=== PATIENT | male | born 1990 | race Caucasian/White ===

== ENCOUNTER 2017-10-24 15:28 | Inpatient (IN) | payer OTHER ==
[2017-10-24 16:43] LABS: Basophils % (Auto) 1.2 % (0.0-1.8); Eosinophils % (Auto) 1.3 % (0.0-4.3); Hematocrit 46.8 % (35.5-45.6); Hemoglobin 16.1 gm/dl (11.8-15.2); Mean Corpuscular HGB Conc 34 % (32-34); Mean Corpuscular Hemoglobin 32 pg (28-32); Mean Corpuscular Volume 94 fl (84-94); Platelet Count 336 K/mm3 (140-440); Red Blood Count 4.99 M/mm3 (3.65-5.03); Red Cell Distribution Width 12.9 % (13.2-15.2); White Blood Count 6.9 K/mm3 (4.5-11.0)
[2017-10-24 17:06] LABS: Anion Gap 19 mmol/L; BUN/Creatinine Ratio 22; Blood Urea Nitrogen 13 mg/dL (9-20); Calcium 9.6 mg/dL (8.4-10.2); Carbon Dioxide 27 mmol/L (22-30); Chloride 96.8 mmol/L (98-107); Glucose 77 mg/dL (75-100); Potassium 4.5 mmol/L (3.6-5.0); Sodium 138 mmol/L (137-145)
[2017-10-24] MEDS ORDERED: ASPIRIN PO ONE (19:18)
--- NOTE | 2017-10-24 19:29 | Emergency Department Report ---
ED Chest Pain HPI - General Chief Complaint: Chest Pain Stated Complaint: CP Time Seen by Provider: 10/24/17 19:16 Source: patient Mode of arrival: Ambulatory Limitations: No Limitations - History of Present Illness Initial Comments: 26 yo male with chest pain that began yesterday at 1300. The pain is sharp and throbbing in nature associated with nausea/vomiting and shortness of breath. It is retrosternal and left chest and radiated to his back..he rates the pain as 4/10. He drinks regularly 8-10 beers a day and snorted cocaine yesterday. He intermittently snorts cocaine . Mr Wright has also had decrease appetite for a few days.. Pt c/o of numbness and tingling in his hands and feet on and off for 2 weeks. 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 MD Complaint: chest pain -: days(s) (2) Onset: during rest Pain Location: substernal, left chest Pain Radiation: back Severity scale (0 -10): 4 Quality: sharp, other (throbbing) Consistency: intermittent Improves With: nothing Worsens With: nothing re: nausea, vomting, dyspnea Other Symptoms: denies: cough, fever Treatments Prior to Arrival: none Aspirin use within the Past 7 Days: (0) No - Related Data On Oral Contraceptives: No Allergies Allergy/AdvReac Type Severity Reaction Status Date / Time Unable to Assess Allergy Unverified 10/24/17 15:44 ED Review of Systems ROS: Stated complaint: CP Other details as noted in HPI ED Past Medical Hx - Past Medical History Previous Medical History?: No - Surgical History Past Surgical History?: No - Social History Smoking Status: Current Every Day Smoker Substance Use Type: None ED Physical Exam - General Limitations: No Limitations General appearance: alert, in no apparent distress - Head Head exam: Present: atraumatic, normocephalic - Eye Eye exam: Present: normal appearance - ENT ENT exam: Present: mucous membranes moist - Neck Neck exam: Present: normal inspection - Respiratory Respiratory exam: Present: normal lung sounds bilaterally. Absent: respiratory distress - Cardiovascular Cardiovascular Exam: Present: normal rhythm, tachycardia. Absent: systolic murmur, diastolic murmur, rubs, gallop - GI/Abdominal GI/Abdominal exam: Present: soft, normal bowel sounds - Rectal Rectal exam: Present: deferred - Extremities Exam Extremities exam: Present: normal inspection - Back Exam Back exam: Present: normal inspection - Neurological Exam Neurological exam: Present: alert, oriented X3 - Psychiatric Psychiatric exam: Present: normal affect, normal mood - Skin Skin exam: Present: warm, dry, intact, normal color. Absent: rash ED Course Vital Signs 10/24/17 15:44 Temperature 98.6 F Pulse Rate 104 H Respiratory 18 Rate Blood Pressure 166/113 O2 Sat by Pulse 98 Oximetry ED Medical Decision Making - Lab Data Result diagrams: 10/24/17 16:02 10/24/17 16:02 - EKG Data EKG shows normal: axis, intervals (LVH) Rate: normal (m) Critical care attestation.: If time is entered above; I have spent that time in minutes in the direct care of this critically ill patient, excluding procedure time. ED Disposition Clinical Impression: Cocaine abuse Condition: Stable Instructions: Chest Pain (ED) Referrals: PRIMARY CARE, [Primary Care Provider] - 3-5 Days
[2017-10-24] MEDS: NITROSTAT SL PRN ×2 (19:43→22:41)
[2017-10-24 20:12] LABS: Urine Drugs of Abuse Note Disclamer
[2017-10-24 21:02] LABS: Bilirubin,Urine NEG (Negative); Blood,Urine NEG (Negative); Ketones,Urine NEG (Negative); Leukocyte Esterase,Urine NEG (Negative); Nitrite,Urine NEG (Negative); Protein,Urine <15 mg/dL mg/dL (Negative); Urobilinogen,Urine < 2.0 mg/dL (<2.0)
[2017-10-24] MEDS ORDERED: NITRO-BID 2% TP ONE ×2 (22:58→23:18)
[2017-10-24] MEDS ORDERED: ATIVAN ONE (23:53)
[2017-10-24] MEDS ORDERED: ATIVAN IV ONE (23:58)
--- NOTE | 2017-10-24 23:59 | History and Physical Report ---
History of Present Illness Date of examination: 10/24/17 History of present illness: 26-year-old man with a history of substance abuse comes emergency room because he has been experiencing chest pain on and off over the last 2 weeks. Pain is in the left chest which he is unable to describe, intermittent, sometimes lasting for one hour, intensity 5/10, no radiation and he cannot identify exacerbating or relieving factor. He stated over the last 2 days his chest pain is worsened he complains of nausea, shortness of breath, palpitation and diaphoresis. His last drink was yesterday Review Of Systems: Constitutional: no weight loss Ears, eyes, nose, mouth and throat: no nasal congestion, no nasal discharge, no sinus pressure, blurry vision, diplopia Neck: No neck pain or rigidity. Cardiovascular: no orthopnea, palpitations Respiratory: No cough Gastrointestinal: abdominal pain, hematochezia Genitourinary : no dysuria, frequency , hematuria Musculoskeletal: no muscle ache Integumentary: no rash, no pruritis Neurological: no parathesias, focal weakness Endocrine: no cold or heat intolerance, no polyuria or polydipsia Hematologic/Lymphatic: no easy bruising, no easy bleeding, no gland swelling Allergic/Immunologic: no urticaria, no angioedema. PAST MEDICAL HISTORY: substance abuse PAST SURGICAL HISTORY: None FAMILY HISTORY: Hypertension SOCIAL HISTORY: 8 beers a day, cocaine, amphentermine use Medications and Allergies Allergies Allergy/AdvReac Type Severity Reaction Status Date / Time Unable to Assess Allergy Verified 10/24/17 23:18 Active Meds: Active Medications Nitroglycerin (Nitrostat) 0.4 mg SL .Q5MIN PRN PRN Reason: Chest Pain Last Admin: 10/24/17 22:41 Dose: 0.4 mg Exam - Physical Exam Narrative exam: Gen. appearance: Patient lying in bed in no acute distress HEENT: Normocephalic/atraumatic, pupils equal round reactive to light, extra alkaline movement intact, no scleral icterus, no JVD or thyromegaly or nodule, neck is supple, mucous membrane moist, no erythema or exudate Heart: S1-S2, tachycardic, rate and rhythm Lungs: Clear to auscultation bilateral breathing comfortable Abdomen: Positive bowel sounds, nontender, nondistended, no organomegaly Extremities: +tremors, No edema, cyanosis, clubbing Neuro:: Oriented 3 , cranial nerves II-12 intact, speech, motor intact Skin: No rash, nodules, warm dry - Constitutional Vitals: Temp Pulse Resp BP Pulse Ox 99 F 92 H 18 142/90 96 10/24/17 19:28 10/24/17 23:20 10/24/17 22:40 10/24/17 23:20 10/24/17 22:40 Results - Labs CBC & Chem 7: 10/24/17 16:02 10/24/17 16:02 Labs: Abnormal lab results 10/24/17 10/24/17 Range/Units 16:02 16:02 Hgb 16.1 H (11.8-15.2) gm/dl Hct 46.8 H (35.5-45.6) % RDW 12.9 L (13.2-15.2) % Chloride 96.8 L (98-107) mmol/L Creatinine 0.6 L (0.8-1.5) mg/dL - Imaging and Cardiology EKG: image reviewed Assessment and Plan Assessment Alcohol withdrawal Chest pain, rule out ACS substance abuse Plan Admit to medicine [facility] protocol with IV Ativan, thiamine and folic acid Cardiac enzymes, stress test when which are all symptoms are resolved DVT prophylaxis
[2017-10-25] MEDS ORDERED: DULCOLAX PR PRN (00:25)
[2017-10-25] MEDS ORDERED: ZOFRAN IV PRN (00:25)
[2017-10-25] MEDS ORDERED: MILK OF MAGNESIA PO PRN (00:25)
[2017-10-25] MEDS ORDERED: ATIVAN IV PRN ×2 (00:31)
[2017-10-25 02:19] LABS: Creatine Kinase 116 units/L (55-170); Creatine Kinase MB 1.3 ng/mL (0.0-4.0)
[2017-10-25 06:29] LABS: Creatine Kinase MB 1.1 ng/mL (0.0-4.0)
[2017-10-25 06:33] LABS: Creatine Kinase 104 units/L (55-170)
--- NOTE | 2017-10-25 09:15 | XRay Report ---
Single view chest: History: Chest pain. Findings: Normal cardiomediastinal silhouette. Trachea is midline. No consolidation, pneumothorax or pleural effusion. Impression: No acute cardiopulmonary findings.
[2017-10-25] MEDS: FOLVITE PO SCH (09:36)
[2017-10-25] MEDS: VITAMIN B-1 PO SCH (09:36)
[2017-10-25] MEDS: LOVENOX SUB-Q SCH (09:38)
[2017-10-25] MEDS ORDERED: LOVENOX SUB-Q SCH (10:00)
[2017-10-25] MEDS: TYLENOL PO PRN ×3 (10:12→22:05)
--- NOTE | 2017-10-25 11:19 | Progress Note ---
Assessment and Plan Assessment and plan: Chest pain Alcohol withdrawal syndrome Amphetamine abuse History Interval history: chest pain Hospitalist Physical - Physical exam Narrative exam: GEN APPEARANCE : Not in acute distress HEENT: Normocephalic Atrauma NECK : supple, no JVD LUNGS: clear to auscultation bilaterally, no rales, no wheeze HEART: S1 and S2 regular, tachycardia, no murmurs, rubs or gallop, ABD: Soft, no tenderness, no distension, normal bowel sounds EXT: No edema, no clubbing, no cyanosis NEURO: Awake,alert,oriented x 3, no facial asymmetry,no focal signs, - Constitutional Vitals: Temp Pulse Resp BP Pulse Ox 97.5 F L 60 18 135/91 100 10/25/17 04:00 10/25/17 10:01 10/25/17 10:12 10/25/17 10:01 10/25/17 09:41 Results - Labs CBC & Chem 7: 10/24/17 16:02 10/24/17 16:02 Labs: Laboratory Last Values WBC 6.9 K/mm3 (4.5-11.0) 10/24/17 16:02 RBC 4.99 M/mm3 (3.65-5.03) 10/24/17 16:02 Hgb 16.1 gm/dl (11.8-15.2) H 10/24/17 16:02 Hct 46.8 % (35.5-45.6) H 10/24/17 16:02 MCV 94 fl (84-94) 10/24/17 16:02 MCH 32 pg (28-32) 10/24/17 16:02 MCHC 34 % (32-34) 10/24/17 16:02 RDW 12.9 % (13.2-15.2) L 10/24/17 16:02 Plt Count 336 K/mm3 (140-440) 10/24/17 16:02 Lymph % (Auto) 22.9 % (13.4-35.0) 10/24/17 16:02 [place] % (Auto) 7.3 % (0.0-7.3) 10/24/17 16:02 Eos % (Auto) 1.3 % (0.0-4.3) 10/24/17 16:02 Baso % (Auto) 1.2 % (0.0-1.8) 10/24/17 16:02 Lymph # 1.6 K/mm3 (1.2-5.4) 10/24/17 16:02 [place] # 0.5 K/mm3 (0.0-0.8) 10/24/17 16:02 Eos # 0.1 K/mm3 (0.0-0.4) 10/24/17 16:02 Baso # 0.1 K/mm3 (0.0-0.1) 10/24/17 16:02 Seg Neutrophils % 67.3 % (40.0-70.0) 10/24/17 16:02 Seg Neutrophils # 4.6 K/mm3 (1.8-7.7) 10/24/17 16:02 D-Dimer 203.16 ng/mlDDU (0-234) 10/24/17 19:24 Sodium 138 mmol/L (137-145) 10/24/17 16:02 Potassium 4.5 mmol/L (3.6-5.0) 10/24/17 16:02 Chloride 96.8 mmol/L (98-107) L 10/24/17 16:02 Carbon Dioxide 27 mmol/L (22-30) 10/24/17 16:02 Anion Gap 19 mmol/L 10/24/17 16:02 BUN 13 mg/dL (9-20) 10/24/17 16:02 Creatinine 0.6 mg/dL (0.8-1.5) L 10/24/17 16:02 Estimated GFR > 60 ml/min 10/24/17 16:02 BUN/Creatinine Ratio 22 % 10/24/17 16:02 Glucose 77 mg/dL (75-100) 10/24/17 16:02 Lactic Acid 1.40 mmol/L (0.7-2.0) 10/24/17 19:24 Calcium 9.6 mg/dL (8.4-10.2) 10/24/17 16:02 Total Creatine Kinase 104 units/L (55-170) 10/25/17 05:58 CK-MB (CK-2) 1.1 ng/mL (0.0-4.0) 10/25/17 05:58 CK-MB (CK-2) Rel Index 1.0 (0-4) 10/25/17 05:58 Troponin T < 0.010 ng/mL (0.00-0.029) 10/25/17 05:58 Urine Color Yellow (Yellow) 10/24/17 20:05 Urine Turbidity Clear (Clear) 10/24/17 20:05 Urine pH 6.0 (5.0-7.0) 10/24/17 20:05 Ur Specific [place] 1.017 (1.003-1.030) 10/24/17 20:05 Urine Protein <15 mg/dl mg/dL (Negative) 10/24/17 20:05 Urine Glucose (UA) Neg mg/dL (Negative) 10/24/17 20:05 Urine Ketones Neg mg/dL (Negative) 10/24/17 20:05 Urine Blood Neg (Negative) 10/24/17 20:05 Urine Nitrite Neg (Negative) 10/24/17 20:05 Urine Bilirubin Neg (Negative) 10/24/17 20:05 Urine Urobilinogen < 2.0 mg/dL (<2.0) 10/24/17 20:05 Ur Leukocyte Esterase Neg (Negative) 10/24/17 20:05 Urine WBC (Auto) 0.0 /HPF (0.0-6.0) 10/24/17 20:05 Urine RBC (Auto) 0.0 /HPF (0.0-6.0) 10/24/17 20:05 Urine Opiates Screen Presumptive negative 10/24/17 20:05 Urine Methadone Screen Presumptive negative 10/24/17 20:05 Ur Barbiturates Screen Presumptive negative 10/24/17 20:05 Ur Phencyclidine Scrn Presumptive negative 10/24/17 20:05 Ur Amphetamines Screen Presumptive positive 10/24/17 20:05 U Benzodiazepines Scrn Presumptive negative 10/24/17 20:05 Urine Cocaine Screen Presumptive negative 10/24/17 20:05 U Marijuana (THC) Screen Presumptive negative 10/24/17 20:05 Drugs of Abuse Note Disclamer 10/24/17 20:05 Plasma/Serum Alcohol < 0.01 gm% (0-0.07) 10/24/17 19:24
[2017-10-26 06:32] LABS: Basophils % (Auto) 1.2 % (0.0-1.8); Hematocrit 43.1 % (35.5-45.6); Mean Corpuscular HGB Conc 35 % (32-34); Mean Corpuscular Hemoglobin 33 pg (28-32); Mean Corpuscular Volume 95 fl (84-94); Platelet Count 291 K/mm3 (140-440); Red Blood Count 4.56 M/mm3 (3.65-5.03); Red Cell Distribution Width 12.8 % (13.2-15.2); White Blood Count 5.1 K/mm3 (4.5-11.0)
[2017-10-26 06:38] LABS: Anion Gap 15 mmol/L; BUN/Creatinine Ratio 20; Blood Urea Nitrogen 12 mg/dL (9-20); Calcium 8.7 mg/dL (8.4-10.2); Carbon Dioxide 27 mmol/L (22-30); Chloride 98.1 mmol/L (98-107); Glucose 104 mg/dL (75-100); Potassium 3.9 mmol/L (3.6-5.0); Sodium 136 mmol/L (137-145)
[2017-10-26] MEDS ORDERED: LEXISCAN IV ONE ×2 (10:25)
[2017-10-26 12:07] VITALS: BP 147/86
[2017-10-26] MEDS: LOVENOX SUB-Q SCH (12:54)
[2017-10-26] MEDS: FOLVITE PO SCH (12:54)
[2017-10-26] MEDS: VITAMIN B-1 PO SCH (12:55)
--- NOTE | 2017-10-26 14:55 | Discharge Summary ---
Providers - Providers Date of Admission: 10/24/17 23:58 Date of discharge: 10/26/17 Attending physician: CLAUDY BAUMAN Primary care physician: JESSICA GRAJEDA MD Hospitalization Condition: Fair Disposition: DC-01 TO HOME OR SELFCARE Core Measure Documentation - Palliative Care Palliative Care/ Comfort Measures: Not Applicable - Core Measures Any of the following diagnoses?: none Exam - Constitutional Vitals: Temp Pulse Resp BP Pulse Ox 98.7 F 95 H 18 147/86 98 10/26/17 09:12 10/26/17 11:00 10/26/17 09:12 10/26/17 10:41 10/26/17 09:12 Plan Activity: no restrictions Diet: regular Additional Instructions: 1.Follow up with PCP or [facility] in 1 week. 2.Avoid Amphetamines, cocaine and other illicit druds. Follow up with: PRIMARY CARE, [Primary Care Provider] - 3-5 Days Prescriptions: Folic Acid [Folvite] 1 mg PO QDAY #30 tablet Thiamine [Vitamin B-1] 100 mg PO DAILY #30 tablet
--- NOTE | 2017-10-26 23:39 | Treadmill Report ---
NUCLEAR PERFUSION SCAN PROTOCOL: The patient was brought to the stress lab in a postabsorptive state, given 10 mCi of technetium 99m. The patient underwent rest imaging. The patient underwent Lexiscan stress test per standard protocol. At peak stress, the patient was given 28 mCi of technetium 99m. Shortly thereafter, the patient underwent stress imaging. Raw imaging reveals mild GI artifact, no significant motion artifact. SPECT imaging examined carefully in the horizontal long axis, vertical long axis, short axis views. There is normal homogenous uptake of radioisotope in all reported segments. No evidence of a significant fixed or reversible perfusion defects suggestive of prior infarction or ischemia. Gated wall motion reveals normal systolic thickening, calculated ejection fraction of 66%. No TID. CONCLUSIONS: 1. Normal nuclear stress test without evidence of ischemia or prior infarction. 2. Normal left ventricular systolic performance without evidence of transient ischemic dilatation or stress-induced segmental wall motion abnormalities. JOB# [id number] SBJoon/MIGUEL ANGEL
== END 2017-10-26 19:25 | disposition home or self-care (01) | DRG 313 ==
LOC: ED 15:28 → 4A 23:58
PROVIDERS: ADMIT Internal Medicine; ATTEND Internal Medicine
DX: R07.89 Other chest pain (principal); F10.239 Alcohol dependence with withdrawal, unspecified; F17.200 Nicotine dependence, unspecified, uncomplicated; F14.10 Cocaine abuse, uncomplicated; Z82.49 Family history of ischemic heart disease and other diseases of the circulatory system; Y90.9 Presence of alcohol in blood, level not specified; F15.10 Other stimulant abuse, uncomplicated
CPT/HCPCS: 36415; 71010; 78452; 80048; 80307; 80320; 81001; 82140; 82550; 82553; 84484; 85025; 85379; 93005; 93010; 93017; 96374; 99406; A9502; G0480; J1650; J2060; J2785

== ENCOUNTER 2018-01-31 21:07 | Emergency (ER) | payer SELFPAY ==
[2018-01-31 21:29] VITALS: BP 141/87
== END 2018-01-31 22:05 | disposition left against medical advice (07) ==
LOC: ED 21:07
DX: S61.419A Laceration without foreign body of unspecified hand, initial encounter (principal); Z53.21 Procedure and treatment not carried out due to patient leaving prior to being seen by health care provider; W45.8XXA Other foreign body or object entering through skin, initial encounter; Y93.89 Activity, other specified; Y99.8 Other external cause status; Y92.89 Other specified places as the place of occurrence of the external cause